=== PATIENT | male | born 1965 | race African-American/Black ===

== ENCOUNTER 2017-02-13 22:47 | Emergency (ER) | payer MEDICAID, OTHER ==
[~2017-02-13] VITALS: Ht 188 cm; Wt 86.2 kg
--- NOTE | 2017-02-13 23:15 | NUR ---
51 YO male bb self. pt is alert x 3, c/o light headed/ dizziness. pt ambulate to er bed with steady gait, skin warm and dry, rr even and unlabored. pt gowned, placed on media monitor. awaiting orders from provider, will cotnitnue to monitor
[2017-02-13] MEDS ORDERED: hydrALAZINE HCL IV 20 MG VIAL IV ONE (23:30)
--- NOTE | 2017-02-13 23:30 | NUR ---
20g right ac iv started, blood sample obtained and sent to lab
[2017-02-13] MEDS ORDERED: hydrALAZINE HCL IV 20 MG VIAL ONE (23:39)
--- NOTE | 2017-02-13 23:41 | NUR ---
medicated pt as ordered
--- NOTE | 2017-02-13 23:46 | NUR ---
Patient transported to [facility] by radiology team
[2017-02-13 23:49] LABS: BASOPHILS % (AUTO) 0.6 % (0.0-2.0); EOSINOPHILS # (AUTO) 0.2 /CMM (0.0-0.7); EOSINOPHILS % (AUTO) 2.8 % (0.0-6.0); HEMATOCRIT 41 % (39-51); LYMPHOCYTES # (AUTO) 2.1 /CMM (0.8-4.8); LYMPHOCYTES % (AUTO) 37.1 % (20.0-44.0); MEAN CORPUSCULAR HEMOGLOBIN 22 PG (26.0-33.0); MEAN CORPUSCULAR HGB CONC 32 g/dl (31.0-36.0); MEAN CORPUSCULAR VOLUME 71 fL (80-96); MONOCYTES # (AUTO) 0.7 /CMM (0.1-1.30); MONOCYTES % (AUTO) 12.8 % (2.0-12.0); NEUTROPHILS # (AUTO) 2.6 /CMM (1.8-8.9); NEUTROPHILS % (AUTO) 46.7 % (43.0-81.0); PLATELET COUNT (AUTO) 234 /CMM (150-450); RDW COEFFICIENT OF VARIATION 17.3 (11.5-15.0); RED BLOOD CELL COUNT(AUTO) 5.82 MIL/uL (4.5-6.0); WHITE BLOOD COUNT (AUTO) 5.6 K/uL (4.3-11.0)
[2017-02-13 23:58] LABS: CALCIUM, SERUM 8.7 mg/dL (8.5-10.1); CREATININE 1.3 mg/dL (0.6-1.3); POTASSIUM 3.7 mmol/L (3.5-5.1)
[2017-02-14 00:03] LABS: INR 1.08 (0.87-1.13); PROTHROMBIN TIME 11.2 SECS (9.5-12.7)
--- NOTE | 2017-02-14 00:45 | NUR ---
Patient discharged to home in stable condition. Written and verbal after care instructions given. Patient verbalizes understanding of instruction.IV removed. Catheter intact and site benign. Pressure and 4x4 applied to site. No bleeding noted. pt ambulatory with a steady gait VITAL SIGNS WITHIN NORMAL LIMITS.
[2017-02-14 00:46] VITALS: BP 157/115
== END 2017-02-14 00:47 | disposition home or self-care (01) ==
LOC: ER 22:58
DX: I10 Essential (primary) hypertension (principal); D64.9 Anemia, unspecified; R79.1 Abnormal coagulation profile; F12.10 Cannabis abuse, uncomplicated; G89.29 Other chronic pain; Z98.890 Other specified postprocedural states
CPT/HCPCS: 36415; 70450; 80048; 85025; 85730; 96374; 99285; A4606; J0360; Z7610